=== PATIENT | male | born 1955 | race Caucasian/White ===

== ENCOUNTER 2017-01-16 07:22 | Day surgery (SDC) | payer OTHER ==
[~2017-01-16] VITALS: Ht 167.6 cm; Wt 66.3 kg
[2017-01-16 08:05] VITALS: Ht 167.6 cm; Wt 66.3 kg
[2017-01-16] MEDS ORDERED: TAMS0.4C2 PO (08:23)
[2017-01-16] MEDS ORDERED: FINA1TAB16 PO (08:23)
[2017-01-16] MEDS ORDERED: PROPOFOL 40 ML ONE (08:31)
[2017-01-16 08:46] VITALS: BP 119/73; PULSE 53; RESP 16
[2017-01-16 10:00] VITALS: BP 125/65; PULSE 53; RESP 16; RESP 18
[2017-01-16] MEDS ORDERED: PROPOFOL 20 ML ONE (10:17)
--- NOTE | 2017-01-16 11:36 | GILP ---
DATE OF PROCEDURE: 01/16/2017 NAME OF PROCEDURES: 1. Esophagogastroduodenoscopy and biopsy. 2. Colonoscopy, biopsy and polypectomy. SURGEON: Amari Jacobo MD PREOPERATIVE DIAGNOSES: 1. Abdominal pain. 2. Positive occult blood in stool. POSTOPERATIVE DIAGNOSES: 1. Hiatal hernia. 2. Reflux esophagitis. 3. Gastritis. 4. Gastric mucosal biopsies were taken for Helicobacter pylori test. 5. Colonoscopy all the way to the cecum. 6. Three transverse colon polyps were removed using the biopsy forceps. 7. One transverse colon polyp and another one in the sigmoid colon were removed using the snare and electrocautery. 8. Internal hemorrhoids. INDICATION FOR THE PROCEDURE: Mr. Jesus Hernadez is a 61-year-old male patient who had upper abdom inal pain, not responding to therapy. He was also noted to have positive occult blood in stool, so the patient was scheduled for endoscopy and colonoscopy. The procedures and possible complications were well explained to the patient. The patient understoo d and consented to the procedure. DESCRIPTION OF PROCEDURE: Under the influence of anesthesia, the gastroscope was carefully introduc ed into the esophagus and under direct vision, it was advanced to the stomach and through the pyloru s into the duodenal bulb and descending duodenum. FINDINGS: ESOPHAGUS: The patient had hiatal hernia and reflux esophagitis. STOMACH: He had gastritis. Gastric mucosal biopsies were taken for H. pylori test. DUODENUM: Normal. The colonoscope was carefully introduced in the rectum and under direct vision, it was advanced all the way to the cecum. FINDINGS: The patient had 4 transverse colon polyps, and 3 of them were removed using the biopsy fo rceps and one with the snare and electrocautery. The patient also had a sigmoid polyp and it was re moved using the snare and electrocautery. He was noted to have internal hemorrhoids. He tolerated the procedures very well and there was no complication from the procedures. At the end of the procedures, he was awake with stable vital signs and he was discharged home to the care of h is family. IMPRESSION: Please see postoperative diagnosis. PLAN: 1. Pantoprazole 40 mg p.o. q.a.m. 2. Await histopathology reports. 3. The patient will need next screening colonoscopy in 3 years. Dictated By: AMARI DUBOIS/DIMPLE Conf#: [id number] DID#: [id number] CC: AMARI JACOBO MD;*[facility]*
--- NOTE | 2017-01-16 22:29 | CONS ---
DATE OF ADMISSION: 01/16/2017 DATE OF CONSULTATION: TYPE OF CONSULTATION: Preoperative gastroenterology. I thank you very much for this kind referral. HISTORY OF PRESENT ILLNESS: Mr. Jessu Hernadez is a 61-year-old male patient who has been referred to me for further evaluation of positive occult blood in stool. The patient also complains of uppe r abdominal pain associated with bloating. There is no past history of colon neoplasm heart peptic ulcer disease. He is not taking any nonsteroidal anti-inflammatory agents. His appetite has been s omewhat poor, but there is no history of significant weight loss. There is no history of gallstones . He does not have any fever, chills, or jaundice. There is no history of liver disease. He is no t a hypertensive or diabetic. He does not have any heart disease or lung problem. There is no hist ory of kidney disease. He has enlarged prostate. SOCIAL HISTORY: He is a smoker. He denies alcohol abuse. FAMILY HISTORY: Negative for gastrointestinal tract neoplasm. ALLERGIES: THERE IS NO HISTORY OF SIGNIFICANT DRUG ALLERGY. MEDICATIONS: 1. Finasteride. 2. Flomax. PHYSICAL EXAMINATION: GENERAL: He is 5 feet 6 inches tall and he weighs 149 pounds. HEART: Examination of the heart reveals normal first and second heart sounds. LUNGS: Clear. ABDOMEN: Soft without any distention. Liver and spleen are not palpable. There are no masses. Th ere is no focal tenderness. Normal bowel sounds are heard. CENTRAL NERVOUS SYSTEM: Does not reveal any focal neurological deficit. IMPRESSION: 1. Positive occult blood in stool. 2. The patient never had screening colonoscopy. 3. Abdominal pain associated with bloating. 4. Enlarged prostate. 5. The patient is a smoker. PLAN: Colonoscopy and upper endoscopy for further evaluation. Because of the history of intolerance to narcotics, he needs monitored anesthesia care for the proce dures. The procedures and possible complications are well explained to the patient and the family. They un derstand and consent to the procedures. I thank you once again. With warmest personal regards, Dictated By: AMARI DUBOIS/DIMPLE Conf#: [id number] DID#: [id number] CC: AMARI JACOBO MD;*[facility]*
== END 2017-01-16 10:36 | disposition home or self-care (01) ==
LOC: GIL 07:22 → EDSEX 07:22 → GIL 10:36
PROVIDERS: ATTEND Internal Medicine Gastroenterology
DX: K44.9 Diaphragmatic hernia without obstruction or gangrene (principal); K21.0 Gastro-esophageal reflux disease with esophagitis; D12.3 Benign neoplasm of transverse colon; D12.5 Benign neoplasm of sigmoid colon; K29.70 Gastritis, unspecified, without bleeding; K64.8 Other hemorrhoids; F17.200 Nicotine dependence, unspecified, uncomplicated